=== PATIENT | female | born 1985 ===

== ENCOUNTER 2021-03-05 12:17 | Outpatient (CLI) | payer OTHER ==
[~2021-03-05 12:17] MED LIST: CLARINEX-D 11 BOTTLE PO; TRAM1TAB98 PO; ZITHROMAX500 MG PO
== END 2021-03-05 14:01 | disposition home or self-care (01) ==
LOC: OFIC 805 12:17
PROVIDERS: ATTEND Otolaryngology
DX: H80.82 Other otosclerosis, left ear (principal); H90.12 Conductive hearing loss, unilateral, left ear, with unrestricted hearing on the contralateral side